=== PATIENT | male | born 1940 | race Caucasian/White ===

== ENCOUNTER → 2018-09-06 | Outpatient (CLI) | payer MEDICARE | END | disposition home or self-care (01) | LOC: CVU 14:20 | PROVIDERS: ATTEND Internal Medicine Cardiovascular Disease | DX: I08.3 Combined rheumatic disorders of mitral, aortic and tricuspid valves (principal); I11.9 Hypertensive heart disease without heart failure; I48.91 Unspecified atrial fibrillation; E10.9 Type 1 diabetes mellitus without complications; E78.5 Hyperlipidemia, unspecified; Z79.01 Long term (current) use of anticoagulants; Z87.891 Personal history of nicotine dependence | CPT/HCPCS: 93306 ==

== ENCOUNTER → 2018-09-20 | Outpatient (CLI) | payer MEDICARE | END | disposition home or self-care (01) | LOC: CVU 09:17 | PROVIDERS: ATTEND Internal Medicine Cardiovascular Disease | DX: I87.2 Venous insufficiency (chronic) (peripheral) (principal); I10 Essential (primary) hypertension | CPT/HCPCS: 93970 ==

== ENCOUNTER 2020-03-25 14:04 | Outpatient (CLI) | payer MEDICARE | END 2020-03-25 23:59 | disposition home or self-care (01) | LOC: LAB 14:04 | PROVIDERS: ATTEND Internal Medicine Cardiovascular Disease | DX: Z02.9 Encounter for administrative examinations, unspecified (principal) ==

== ENCOUNTER → 2020-03-26 | Outpatient (CLI) | payer MEDICARE ==
[2020-03-26 11:10] LABS: CALCIUM 9.4 mg/dL (8.5-10.1); CHLORIDE 109 mmol/L (98-107)
[2020-03-26 11:15] LABS: ALANINE AMINOTRANSFERASE 31 U/L (12-78); ALBUMIN 3.4 g/dL (3.4-5.0); ALKALINE PHOSPHATASE 99 U/L (45-117); ANION GAP 7 mmol/L (5-15); BILIRUBIN,TOTAL 0.7 mg/dL (0.2-1.0); CHOL/HDL RATIO 1.6; CHOLESTEROL, TOTAL 105 mg/dL (140-239); CREATININE 1.96 mg/dL (0.7-1.3); HDL CHOL % 61 % (26-37); HDL CHOLESTEROL (DIRECT) 64 mg/dL (40-60); LDL CHOLESTEROL,CALCULATED 31 mg/dL (54-169); LDL/HDL RATIO 0.5 (0.5-3.0); TRIGLYCERIDES 49 mg/dL (50-200); VLDL CHOLESTEROL 10 mg/dL (0-25)
== END | disposition home or self-care (01) ==
LOC: LAB 10:43
PROVIDERS: ATTEND Internal Medicine
DX: I10 Essential (primary) hypertension (principal); I48.91 Unspecified atrial fibrillation; E78.2 Mixed hyperlipidemia; E10.9 Type 1 diabetes mellitus without complications; R60.9 Edema, unspecified
CPT/HCPCS: 36415; 80053; 80061

== ENCOUNTER → 2020-09-08 | Outpatient (CLI) | payer MEDICARE ==
[2020-09-08 11:16] LABS: ANION GAP 7 mmol/L (5-15); CHLORIDE 109 mmol/L (98-107); CREATININE 1.91 mg/dL (0.7-1.3)
== END | disposition home or self-care (01) ==
LOC: LAB 10:34
PROVIDERS: ATTEND Internal Medicine Cardiovascular Disease
DX: E10.9 Type 1 diabetes mellitus without complications (principal); E78.2 Mixed hyperlipidemia; I10 Essential (primary) hypertension; I48.91 Unspecified atrial fibrillation; R60.9 Edema, unspecified
CPT/HCPCS: 36415; 80048